=== PATIENT | female | born 1990 | race Caucasian/White ===

== ENCOUNTER 2019-08-22 07:11 | Outpatient (RCR) | payer BC, SELFPAY ==
[2019-07-31 16:41] LABS: Basophils Percent Auto 0.4 % (0.2-1.2); Eosinophils Absolute Auto 0.1 K/mm3 (0-0.3); Eosinophils Percent Auto 1.7 % (0-4.4); Hematocrit 39.3 % (37.0-47.0); Hemoglobin 13.5 g/dL (12.0-15.0); Immature Granulocyte Absolute 0.01 K/mm3 (0.00-0.031); Immature Granulocyte Percent A 0.1 % (0-0.5); Lymphocytes Absolute Auto 2.18 K/mm3 (0.9-3.2); Lymphocytes Percent Auto 30.7 % (18.3-44.2); Mean Corpuscular HGB Conc 34.4 g/dl (32-36); Mean Corpuscular Hemoglobin 31.3 pg (26-34); Mean Corpuscular Volume 91.2 fl (80-100); Mean Platelet Volume 9.5 fl (7.4-10.4); Monocytes Absolute Auto 0.6 K/mm3 (0.1-0.6); Monocytes Percent Auto 8.4 % (2.6-8.5); Neutrophils Absolute Auto 4.2 K/mm3 (1.3-6.7); Neutrophils Percent Auto 58.7 % (45.5-73.1); Platelet Count Result 261 k/mm3 (150-375); Red Blood Count 4.31 M/mm3 (4.2-5.4); Red Cell Distribution Width 12.1 % (11.5-14.5); White Blood Count 7.1 K/mm3 (4.5-10.0)
[2019-07-31 16:52] LABS: Alanine Aminotransferase 21 U/L (4-35); Albumin Level 4.4 g/dL (3.5-5.1); Alkaline Phosphatase 72 U/L (38-126); Aspartate Amino Transferase 29 U/L (14-36); Bilirubin,Total 0.6 mg/dL (0.2-1.3); Blood Urea Nitrogen 13 mg/dL (7-17); Calcium 9.4 mg/dL (8.4-10.2); Carbon Dioxide 24 mmol/L (22-30); Chloride 100 mmol/L (98-107); Estimated Glomerular Filt Rate > 60; Glucose 85 mg/dL (65-105); Sodium 135 mmol/L (137-145)
--- NOTE | 2019-07-31 18:20 | PC.NURSE ---
dr keenan returned page around 181 and stated to consult telecommunications repairer ob-dr mcleod. dr mcleod paged at [phone]. dr mcleod returned page. lab results reviewed w dr mcleod. orders received to administer mathotrexate at this time.
[2019-07-31 18:27] VITALS: BMI 26.2
--- NOTE | 2019-07-31 18:33 | PC.NURSE ---
Addendum entered by Nadya Norton RN 07/31/19 18:48: dr mcleod stated pt is to report back to ob unit on 08/03. pt states pt was informed follow up appointment would be for lab draw. Original Note: dr mcleod called to confirm pt labs. dr mcleod inquired about pt blood type. dr mcleod stated if this is pt first and pt is unsure of blood type, dr mcleod request for type and screen to be drawn and for pt to receive rhogam if blood type is negative.
[2019-07-31] MEDS: METHOTREXATE SODIUM/PF 50 MG/2 ML VIAL 36.25 MG IM ×2 (19:15)
[2019-08-15 18:03] LABS: Beta HCG Quantitative 156.89 mIU/ML
[2019-08-22 07:55] LABS: Beta HCG Quantitative 30.68 mIU/ML
== END 2019-08-27 07:52 | disposition home or self-care (01) ==
LOC: ANHOBOP 07:11
PROVIDERS: Visit Provider Obstetrics & Gynecology
DX: O02.1 Missed abortion (principal); Z3A.00 Weeks of gestation of pregnancy not specified
CPT/HCPCS: 36415; 80053; 84702; 85025; 86850; 86900; 86901; 96372; J9260

== ENCOUNTER 2019-09-05 07:10 | Outpatient (RCR) | payer BC, SELFPAY ==
[2019-09-05 07:56] LABS: Beta HCG Quantitative 4.03 mIU/ML
== END 2019-10-31 08:00 | disposition home or self-care (01) ==
LOC: ANHOBOP 07:10
PROVIDERS: Visit Provider Obstetrics & Gynecology
DX: Z32.00 Encounter for pregnancy test, result unknown (principal)
CPT/HCPCS: 36415; 84702

== ENCOUNTER 2020-01-08 17:37 | Outpatient (RCR) | payer BC, SELFPAY | END 2020-04-05 23:59 | disposition home or self-care (01) | LOC: ANHLAB 17:37 | PROVIDERS: Visit Provider Obstetrics & Gynecology | DX: O26.859 Spotting complicating pregnancy, unspecified trimester (principal); Z3A.00 Weeks of gestation of pregnancy not specified | CPT/HCPCS: 36415; 84702 ==

== ENCOUNTER 2020-01-23 10:46 | Outpatient (CLI) | payer BC, SELFPAY ==
--- NOTE | ~2020-01-23 | US_ITS ---
EXAMINATION: US OB <=14 wk fetus w TV DATE: 01/23/2020 12:00 INDICATION: History of miscarriage. Gestational dating. TECHNIQUE: Real-time transabdominal and transvaginal obstetric ultrasound. FINDINGS: No prior studies for comparison. The uterus measures 12.4 x 6.8 x 4.2 cm.. There is an intrauterine gestational sac, with pole i dentified. The crown rump length measures 0.53 cm, which correlates with a estimated gestational age of 6 weeks 2 days. heart tones are identified measuring 101 bpm. There is a small subchorion ic hemorrhage measuring 12 x 11 x 8 mm. Left ovary within normal limits measuring 3 x 1.4 x 1.5 cm. R ight ovary not visualized. IMPRESSION: 1. SL IUP with an EGA of 6 weeks, 2 days (EDC by current ultrasound of 09/15/2020). 2: Small subchorionic hemorrhage. Reviewed, dictated and finalized at location B. IMPRESSION: 1. SL IUP with an EGA of 6 weeks, 2 days (EDC by current ultrasound of 09/16/19 21). 2: Small subchorionic hemorrhage.
== END 2020-01-23 10:47 | disposition home or self-care (01) ==
PROVIDERS: Visit Provider Obstetrics & Gynecology
DX: O26.21 Pregnancy care for patient with recurrent pregnancy loss, first trimester (principal); O26.841 Uterine size-date discrepancy, first trimester; Z3A.01 Less than 8 weeks gestation of pregnancy
CPT/HCPCS: 76801; 76817

== ENCOUNTER 2020-02-21 07:59 | Outpatient (CLI) | payer BC, SELFPAY ==
--- NOTE | ~2020-02-21 | US_ITS ---
EXAMINATION: US OB <= 14 weeks fetus DATE: 02/21/2020 08:31 INDICATION: Follow-up subchorionic hematoma during first trimester of . TECHNIQUE: Real-time pelvic ultrasound utilizing both a transvaginal and transabdominal probe was pe rformed. The interpreting radiologist was not present for the study. COMPARISON: 01/23/2020 FINDINGS: The uterus measures 13.7 x 8.1 x 5.1 cm. There is an intrauterine gestational sac. A yolk sac and fe helen pole are identified. The crown rump length measures 4.3 cm, which is concordant within range of m easurement error of the estimated gestational age of 10 weeks and 3 days based upon the earlier ultra sound performed on 01/23/2020. heart motion is identified measuring 174 beats per minute (bpm) b y M-mode Doppler. Again seen is a small paracolic subchorionic hematoma along the caudal margin of th e gestational sac which measures 10 x 12 x 7 mm. Instantly noted is an 11 mm hypoechoic likely subser osal fibroid along the anterior uterine fundus. The bilateral ovaries are not visualized. There is no free fluid in the pelvis. IMPRESSION: 1. Single living fetus with heart rate of 174 bpm. 2. [place]-rump length of 4.3 cm which is concordant within range of measurement error of the previousl y determined estimated gestational age of 10 weeks 3 day(s) with ultrasound estimated date of deliver y ([facility]) of 09/15/2020. 3. Persistent small subchorionic hematoma. 4. 11 mm subserosal fibroid. Reviewed, dictated and finalized at location A. IMPRESSION: 1. Single living fetus with heart rate of 174 bpm. 2. [place]-rump length of 4.3 cm which is concordant within range of measurement error of the previously determined estimated gestational age of 10 weeks 3 day( s) with ultrasound estimated date of delivery ([facility]OR[facility]) of 09/15/2020. 3. Persistent small subchorionic hematoma. 4. 11 mm subserosal fibroid.
== END 2020-02-21 08:00 | disposition home or self-care (01) ==
PROVIDERS: Visit Provider Obstetrics & Gynecology
DX: O26.841 Uterine size-date discrepancy, first trimester (principal); Z3A.00 Weeks of gestation of pregnancy not specified
CPT/HCPCS: 76801

== ENCOUNTER 2020-03-02 17:38 | Outpatient (RCR) | payer BC, SELFPAY ==
[2020-03-02 18:09] LABS: Basophils Percent Auto 0.4 % (0.2-1.2); Eosinophils Absolute Auto 0.2 K/mm3 (0-0.3); Eosinophils Percent Auto 2.2 % (0-4.4); Hematocrit 36.7 % (37.0-47.0); Hemoglobin 13.2 g/dL (12.0-15.0); Immature Granulocyte Absolute 0.03 K/mm3 (0.00-0.031); Immature Granulocyte Percent A 0.4 % (0-0.5); Lymphocytes Absolute Auto 2.11 K/mm3 (0.9-3.2); Lymphocytes Percent Auto 27.1 % (18.3-44.2); Mean Corpuscular Hemoglobin 32.4 pg (26-34); Mean Corpuscular Volume 90.2 fl (80-100); Mean Platelet Volume 10.1 fl (7.4-10.4); Monocytes Absolute Auto 0.5 K/mm3 (0.1-0.6); Monocytes Percent Auto 6.8 % (2.6-8.5); Neutrophils Absolute Auto 4.9 K/mm3 (1.3-6.7); Neutrophils Percent Auto 63.1 % (45.5-73.1); Platelet Count Result 221 k/mm3 (150-375); Red Blood Count 4.07 M/mm3 (4.2-5.4); Red Cell Distribution Width 12.4 % (11.5-14.5); White Blood Count 7.8 K/mm3 (4.5-10.0)
[2020-03-02 18:30] LABS: Hemoglobin A1C 4.8 % (<5.7)
[2020-03-02 19:11] LABS: HIV 1/2 Ab P24 Ag Result Negative (Negative)
[2020-03-02 19:15] LABS: Vitamin D 25 Hydroxy 40.7 ng/mL
[2020-03-02 19:42] LABS: Hepatitis B Surface Antigen Negative (Negative)
[2020-03-03 08:13] LABS: Rapid Plasma Reagin Non-Reactive (NonReactive)
== END 2020-05-31 23:59 | disposition home or self-care (01) ==
LOC: ANHLAB 17:38
PROVIDERS: Visit Provider Obstetrics & Gynecology
DX: Z11.4 Encounter for screening for human immunodeficiency virus [HIV] (principal)
CPT/HCPCS: 36415; 82306; 83036; 85025; 85461; 86592; 86703; 86762; 87340; G0432

== ENCOUNTER 2020-03-19 08:10 | Outpatient (CLI) | payer BC, SELFPAY ==
--- NOTE | ~2020-03-19 | US_ITS ---
EXAMINATION: US OB <= 14 weeks fetus DATE: 03/19/2020 09:21 INDICATION: Subchorionic hemorrhage, second trimester TECHNIQUE: Real-time pelvic transabdominal and transvaginal ultrasound was performed. COMPARISON: 02/21/2020 FINDINGS: The previously described subchorionic hemorrhage is not identified. Two masses at the anter ior uterine body are identified which have the appearance of subserosal fibroids. heart motion is identified measuring 153 beats per minute (bpm) by M-mode Doppler. The following biometric data were obtained: Biparietal diameter (BPD): 2.8 cm; head circumference (HC): 11.0 cm; abdominal circumference (AC): 9. 0 cm; femur length (FL): 1.4 cm. These measurements are concordant. Estimated weight is 108 g +/- 16 g, which correlates with the 78th percentile when 09/15/2020 is used as estimated date of delivery. As single measurements, these parameters are each equal to the following estimated gestational ages w ith ranges of +/- 2 standard deviations: BPD: 15 weeks 1 days ( 14 weeks 0 days - 16 weeks 3 days). HC: 15 weeks 2 days ( 14 weeks 1 days - 16 weeks 3 days). AC: 15 weeks 2 days ( 13 weeks 4 days - 17 weeks 0 days). FL: 14 weeks 3 days ( 13 weeks 0 days - 15 weeks 5 days). estimated gestational age based solely on measurements from this exam is 15 weeks 0 days +/- 1 weeks 0 days. IMPRESSION: 1. Live intrauterine with an estimated gestational age of 15 weeks and 0 day(s) (+/-) 7 day (s) and an estimated delivery date of 09/10/2020. 2. No persistent subchorionic hemorrhage. Reviewed, dictated and finalized at location B. IMPRESSION: 1. Live intrauterine with an estimated gestational age of 15 weeks an d 0 day(s) (+/-) 7 day(s) and an estimated delivery date of 09/10/2020. 2. No persistent subchorionic hemorrhage.
== END 2020-03-19 08:11 | disposition home or self-care (01) ==
PROVIDERS: Visit Provider Obstetrics & Gynecology
DX: O46.92 Antepartum hemorrhage, unspecified, second trimester (principal); Z3A.15 15 weeks gestation of pregnancy
CPT/HCPCS: 76801

== ENCOUNTER 2020-06-27 12:25 | Observation (INO) | payer BC, SELFPAY ==
[2020-06-27] VITALS (21 sets, daily range): BP systolic 131–133; BP diastolic 87–89; PULSE 72–121; RESP 20; TEMP 37.2–37.3; O2SAT 83–100
--- NOTE | ~2020-06-27 | US_ITS ---
EXAMINATION: US OB limited EXAM DATE: 06/27/2020 14:39 INDICATION: fall - placenta check FALL 3rd trimester. TECHNIQUE: Pelvic obstetrical transabdominal sonogram was performed by a technologist. There are mu ltiple grayscale and Doppler images available for interpretation. Comparison is made to prior examina tion from 03/11/2020. FINDINGS: There is a single fetus identified in reach presentation with a heart rate of 139 beats per minute. The placenta is located in the posterior position. There is no sonographic evidence of retr oplacental hemorrhage identified. Placental margin to internal cervical os distance is 9.6 cm. Cervi arpan canal length of 7 cm. IMPRESSION: 1. Single fetus in breech presentation with heart rate 139 beats per minute. 2. Unremarkable posteriorly located placenta. Reviewed, dictated and finalized at location A. LETION MANAGER
[2020-06-27] MEDS: NIFEdipine 10 MG CAPSULE PO (13:36)
[2020-06-27 15:45] LABS: Add Urine Microscopic? YES; Appearance Urine Clear (Clear); Bacteria Urine Trace /hpf; Bilirubin Urine Negative (Negative); Blood Urine Negative (Negative); Color Urine Straw (Yellow); Glucose Urine UA 1+ mg/dL (Negative); Ketones Urine 2+ mg/dL (Negative); Leukocyte Esterase Ur Negative LEU/UL (Negative); Nitrate Urine Negative (Negative); Protein Urine Negative (Negative); RBC Urine 0-2 /hpf (0-2); Specific Grav Ur 1.014 (1.001-1.035); Squamous Epithelial Cell Urine Rare /hpf (Few); Urobilinogen Urine Negative mg/dL (<2.0); WBC Urine 0-3 /hpf
--- NOTE | 2020-06-27 18:42 | OBADM ---
This patient, Nadya Duron, admitted to the OB room OB Post 115 for observation. Patient/family oriented to hospital policies and general routines including ID bracelet, bed and alarms, visiting hours, pain management, procedures, bathroom and other care routines, personal items, smoking policy, room service/diet, call light, and visiting hours. Patient/Family are encouraged to report perceived risks to care and to ask questions if they do not understand what they are told or what they should do.
--- NOTE | 2020-07-08 13:03 | PM.OBTRLD ---
OB - Triage/Final Diagnosis Evaluation Laboratory results: Laboratory Tests 06/27/20 15:34 Urine Color Straw Urine Appearance Clear Urine pH 6.0 Ur Specific Story 1.014 Urine Protein Negative Urine Glucose (UA) 1+ H Urine Ketones 2+ H Ur Blood (Man) Negative Urine Nitrate Negative Urine Bilirubin Negative Urine Urobilinogen Negative Leukocyte Esterase Rfl Negative Urine RBC 0-2 Urine WBC 0-3 Ur Squamous Epith Cells Rare Urine Bacteria Trace Final Diagnosis (1) Fall: Code(s): W19.XXXA - Unspecified fall, initial encounter Status: Acute (2) contractions: Code(s): O47.9 - False labor, unspecified Status: Acute
== END 2020-06-27 17:11 | disposition home or self-care (01) ==
PROVIDERS: Admitting Provider Obstetrics & Gynecology; Visit Provider Obstetrics & Gynecology
DX: O47.9 False labor, unspecified (principal); W19.XXXA Unspecified fall, initial encounter; Z3A.00 Weeks of gestation of pregnancy not specified
CPT/HCPCS: 76815; 81001; A9270; G0378; G0379

== ENCOUNTER 2020-08-18 13:26 | Emergency (ER) | payer BC, SELFPAY ==
[2020-08-18] VITALS (7 sets, daily range): BP systolic 130–150; BP diastolic 80–105; PULSE 57–122; RESP 18–26; TEMP 37.1; O2SAT 96–100
--- NOTE | ~2020-08-18 | XR_ITS ---
EXAMINATION: XR chest 1V portable DATE: 08/18/2020 18:25 INDICATION: COVID positive during third trimester presenting with cough, congestion and fev er. TECHNIQUE: frontal view of the chest was obtained. COMPARISON: None FINDINGS: Scattered patchy airspace opacities throughout the right lung and in the left midlung zone. No pleura l effusion or pneumothorax. Borderline heart size accounting for AP technique which may represent phy siologic change of . Late shielding material projects over the abdomen. IMPRESSION: 1. Patchy bilateral airspace opacities consistent with COVID pneumonia. 2. Borderline heart size which may reflect physiologic changes of . Reviewed, dictated and finalized at location A. FER OPERATOR
--- NOTE | ~2020-08-18 | CT_ITS ---
EXAMINATION: CTA chest PE protocol DATE: 08/18/2020 21:44 INDICATION: COVID positive presenting with cough, congestion and fever. TECHNIQUE: Computed tomography (CT) pulmonary angiogram of the chest was performed with 100 mL Omnipa que-350 intravenous contrast. Additional 3D reconstructions utilizing coronal maximum intensity proje ction (MIP) were performed. Automated exposure control and iterative reconstruction technique were em ployed. The dose-length product was 158.12 mGy-cm. COMPARISON: None FINDINGS: Excellent contrast opacification of the pulmonary arteries. There is mild streak artifact from dense contrast in the superior vena cava and right atrium. Mild scattered respiratory motion artifact. Over all this only minimally decreases sensitivity in some of the smaller subsegmental pulmonary arteries. No pulmonary embolism. There are scattered bilateral patchy regions of consolidation ground[place] most prominent in the right lower lobe, lingula and right upper lobe most likely representing CO VID pneumonia. No pleural effusion, pneumothorax or smooth septal line thickening to suggest pulmonar y edema. Mild cardiomegaly which may reflect neurologic changes of . Small pericardial effus ion. Thoracic aorta is normal in caliber with no dissection. Small amount of residual thymic tissue i n the anterior mediastinum. No pathologically enlarged thoracic lymphadenopathy. Visualized upper abd omen is unremarkable. Mild thoracic spondylosis. IMPRESSION: 1. No pulmonary embolism. 2. Patchy bilateral lung disease greatest in the lingula, right upper and lower lobes most likely rep resenting pelvic pneumonia. 3. Mild cardiomegaly which per second physiologic changes of . 4. Small pericardial effusion. 2. Reviewed, dictated and finalized at location A. ECTIONAL SUPERVISOR LIEUTENANT IMPRESSION: 1. No pulmonary embolism. 2. Patchy bilateral lung disease greatest in the lingula, right upper and lower lobes most likely representing pelvic pneumonia. 3. Mild cardiomegaly which per second physiologic changes of . 4. Small pericardial effusion. 2.
[2020-08-18 13:55] LABS: Basophils Percent Auto 0.2 % (0.2-1.2); Hematocrit 36.6 % (37.0-47.0); Hemoglobin 12.3 g/dL (12.0-15.0); Immature Granulocyte Absolute 0.09 K/mm3 (0.00-0.031); Lymphocytes Absolute Auto 0.66 K/mm3 (0.9-3.2); Lymphocytes Percent Auto 14.6 % (18.3-44.2); Mean Corpuscular HGB Conc 33.6 g/dl (32-36); Mean Corpuscular Volume 89.3 fl (80-100); Mean Platelet Volume 9.8 fl (7.4-10.4); Monocytes Absolute Auto 0.4 K/mm3 (0.1-0.6); Monocytes Percent Auto 8.2 % (2.6-8.5); Neutrophils Absolute Auto 3.4 K/mm3 (1.3-6.7); Platelet Count Result 155 k/mm3 (150-375); Red Cell Distribution Width 12.7 % (11.5-14.5); White Blood Count 4.5 K/mm3 (4.5-10.0)
[2020-08-18 14:19] LABS: Alanine Aminotransferase 55 U/L (4-35); Albumin Level 3.3 g/dL (3.5-5.1); Alkaline Phosphatase 137 U/L (38-126); Anion Gap 6 mmol/L (8-16); Aspartate Amino Transferase 73 U/L (14-36); Bilirubin,Total 0.3 mg/dL (0.2-1.3); Blood Urea Nitrogen 12 mg/dL (7-17); Calcium 8.5 mg/dL (8.4-10.2); Carbon Dioxide 21 mmol/L (22-30); Chloride 108 mmol/L (98-107); Estimated Glomerular Filt Rate > 60; Glucose 79 mg/dL (65-105); Potassium 4.6 mmol/L (3.4-5.0); Sodium 135 mmol/L (137-145)
--- NOTE | 2020-08-18 18:04 | ECG_ITS ---
Measurements Intervals [place] Rate: 114 P: 55 TN: 128 QRS: 33 QRSD: 82 T: 35 QT: 293 QTc: 405 Interpretive Statements SINUS TACHYCARDIA POSSIBLE LEFT ATRIAL ENLARGEMENT BASELINE ARTIFACT- III ABNORMAL ECG Electronically Signed On 08-19-2020 7:01:06 STONECUTTER by Dilshad Baron D.O.
[2020-08-18 19:31] LABS: D Dimer 0.96 ug/mL (<0.48)
--- NOTE | 2020-08-18 20:02 | PC.NURSE ---
Called OB to come and monitor baby per Dr. Barillas request.
--- NOTE | 2020-08-18 21:18 | ED.GENADULT ---
HPI - General Adult General Chief complaint: Upper Respiratory Infection <Kaushik Hdz PA-C - Last Filed: 08/18/20 21:37> Stated complaint: COVID+, 36 weeks preg <Kaushik Hdz PA-C - Last Filed: 08/18/20 21:37> Time Seen by Provider: 08/18/20 17:40 <Kaushik Hdz PA-C - Last Filed: 08/18/20 21:37> Source: patient <Kaushik Hdz PA-C - Last Filed: 08/18/20 21:37> Mode of arrival: ambulatory <Kaushik Hdz PA-C - Last Filed: 08/18/20 21:37> Limitations: no limitations <Kaushik Hdz PA-C - Last Filed: 08/18/20 21:37> History of Present Illness HPI narrative: Patient presents with chief complaint of fatigue, shortness of breath after being diagnosed with Covid. Patient states that she began having symptoms approximately a week ago be tested positive for Covid on today. Patient started 6 weeks and her QUALITY FACILITATOR is Dr. Ridley. Patient states that her movement has been appropriate. Patient states that she is just concerned that having Covid will have negative effects on the baby. Patient is very anxious and tearful. She denies chest pain, vomiting, headache, inability to eat and drink, dysuria. <Kaushik Hdz PA-C - Last Filed: 08/18/20 21:37> Related Data Home medications: Home Medications Medication Instructions Recorded Confirmed PNV cmb#95-ferrous fumarate-FA 1 tablet PO DAILY 08/13/20 08/13/20 [] ergocalciferol (vitamin D2) 1,250 mcg PO WEEKLY 08/13/20 08/13/20 [Vitamin D2] <JUSTINO Parra Last Filed: 08/18/20 21:37> Allergies/adverse reactions: Allergies Allergy/AdvReac Type Severity Reaction Status Date / Time No Known Allergies Allergy Verified 07/31/19 19:01 <JUSTINO Parra Last Filed: 08/18/20 21:37> Review of Systems Review of Systems: Narrative: CONSTITUTIONAL: Reports body ache and fatigue denies fever, chills, or sweats. EYES: Denies visual changes, redness, or discharge. ENT: Denies rhinorrhea, congestion, sore throat, or otalgia. CARDIOVASCULAR: Denies chest pain, palpitations, or edema. RESPIRATORY: Reports shortness of breath with exertion denies cough GASTROINTESTINAL: Denies abdominal pain, nausea, vomiting, or diarrhea. GENITOURINARY: Denies dysuria or hematuria. SKIN: Denies rash or itching. MUSCULOSKELETAL: Denies back pain, joint pain, or myalgia. NEUROLOGIC: Denies headache, numbness, dizziness, or weakness. PSYCHIATRIC: Reports anxiety denies depression. <Kaushik Hdz PA-C - Last Filed: 08/18/20 21:37> PMFSH Past Medical History Medical History: Medical History (Updated 08/18/20 @ 22:23 by Victor Manuel Jackson MD) Fall contractions <Kaushik Hdz PA-C - Last Filed: 08/18/20 21:37> Family History Family History: Family History (Updated 08/13/20 @ 13:05 by Mook Johnson RN) Mother Breast cancer <Kaushik Hdz PA-C - Last Filed: 08/18/20 21:37> Social History Social History: Social History Substance use: never Gender identity (if verbalized by the patient): Female Spiritual care concerns: No <Kaushik Hdz PA-C - Last Filed: 08/18/20 21:37> Exam Narrative: Exam Narrative: GENERAL: Well-appearing, well-nourished.Obvious achondroplasia. HEAD: No traumatic injury noted. EYES: PERRLA and EOMI. ENT: Nares clear, no rhinorrhea or epistaxis. Mucous membranes moist. Oropharynx without tonsillar hypertrophy exudate or other lesions. Bilateral TMs pearly hendricks nonbulging NECK: Supple. No adenopathy or masses. No vertebral tenderness or loss of ROM. CHEST: Clear to auscultation. No respiratory distress. No agonal breathing or flail chest. No wheezes rales or rhonchi HEART: Regular rate and rhythm. Normal peripheral pulses. EXTREMITIES: No acute changes in ROM. No edema. SKIN: Warm, dry, no rash. NEURO: No focal deficits. Alert and oriented x3. PSYCH: Patient is very anxious and alternates between being calm to being tearfu
== END 2020-08-18 22:59 | disposition home or self-care (01) ==
PROVIDERS: Emergency Medicine; Physician Assistant; Emergency Provider Emergency Medicine
DX: O98.511 Other viral diseases complicating pregnancy, first trimester (principal); O99.511 Diseases of the respiratory system complicating pregnancy, first trimester; U07.1 COVID-19; J12.82 Pneumonia due to coronavirus disease 2019; Z3A.01 Less than 8 weeks gestation of pregnancy; R00.0 Tachycardia, unspecified; R94.31 Abnormal electrocardiogram [ECG] [EKG]
CPT/HCPCS: 36415; 71045; 71275; 80053; 85025; 85380; 93005; 96365; 99284; J0131; Q9967

== ENCOUNTER 2020-08-21 16:46 | Outpatient (CLI) | payer BC, SELFPAY ==
[2020-08-21] VITALS (20 sets, daily range): BP systolic 138–147; BP diastolic 91–99; PULSE 86–104; TEMP 37.2; O2SAT 93–97; BMI 29.0
[2020-08-21 17:27] LABS: Basophils Percent Auto 0.4 % (0.2-1.2); Hematocrit 35.2 % (37.0-47.0); Hemoglobin 11.9 g/dL (12.0-15.0); Immature Granulocyte Absolute 0.23 K/mm3 (0.00-0.031); Immature Granulocyte Percent A 3.1 % (0-0.5); Lymphocytes Absolute Auto 1.02 K/mm3 (0.9-3.2); Lymphocytes Percent Auto 13.5 % (18.3-44.2); Mean Corpuscular HGB Conc 33.8 g/dl (32-36); Mean Corpuscular Hemoglobin 30.1 pg (26-34); Mean Corpuscular Volume 89.1 fl (80-100); Mean Platelet Volume 9.6 fl (7.4-10.4); Monocytes Absolute Auto 0.5 K/mm3 (0.1-0.6); Monocytes Percent Auto 6.2 % (2.6-8.5); Neutrophils Absolute Auto 5.8 K/mm3 (1.3-6.7); Neutrophils Percent Auto 76.8 % (45.5-73.1); Platelet Count Result 193 k/mm3 (150-375); Red Blood Count 3.95 M/mm3 (4.2-5.4); Red Cell Distribution Width 12.9 % (11.5-14.5); White Blood Count 7.5 K/mm3 (4.5-10.0)
--- NOTE | 2020-08-21 17:30 | PC.NURSE ---
Patient tested positive for COVID on monday, was seen in the ER on 08/18/20. Several family members have been positive. Patient is short of breath with even mild excursion. Lung sounds are slightly diminished bilateral. O2 stat 95% or greater. Resp are 26.
[2020-08-21 17:32] LABS: Add Urine Microscopic? YES; Appearance Urine Cloudy (Clear); Bacteria Urine Trace /hpf; Bilirubin Urine Negative (Negative); Blood Urine Negative (Negative); Color Urine Yellow (Yellow); Glucose Urine UA Negative (Negative); Ketones Urine 2+ mg/dL (Negative); Leukocyte Esterase Ur Negative LEU/UL (NEGATIVE); Mucus Urine Moderate /lpf; Nitrate Urine Negative (Negative); Protein Urine 2+ mg/dL (Negative); RBC Urine 0-2 /hpf (0-2); Specific Grav Ur 1.027 (1.001-1.035); Squamous Epithelial Cell Urine Many /hpf (Few); WBC Urine 0-3 /hpf (0-3)
[2020-08-21 17:35] LABS: Creatinine Urine 156.8 mg/dL; Total Protein Urine Random 43 mg/dL; Ur Ttl Prot Creatinine Ratio 0.27 mg/mg (0-0.20)
[2020-08-21 17:42] LABS: Alanine Aminotransferase 49 U/L (4-35); Albumin Level 3.4 g/dL (3.5-5.1); Alkaline Phosphatase 177 U/L (38-126); Anion Gap 7 mmol/L (8-16); Aspartate Amino Transferase 58 U/L (14-36); Bilirubin,Total 0.6 mg/dL (0.2-1.3); Blood Urea Nitrogen 12 mg/dL (7-17); Calcium 8.7 mg/dL (8.4-10.2); Carbon Dioxide 21 mmol/L (22-30); Chloride 110 mmol/L (98-107); Estimated Glomerular Filt Rate > 60; Glucose 71 mg/dL (65-105); Sodium 138 mmol/L (137-145)
--- NOTE | 2020-08-21 18:13 | PC.NURSE ---
Dr Hayes notified of lab results, ok to de home with a 24 hour urine collection. Encourage patient to rest and stay hydrated.
== END 2020-08-21 18:30 | disposition home or self-care (01) ==
LOC: ANHOBOP 16:57 → ANHOBPP 17:08
PROVIDERS: Visit Provider Obstetrics & Gynecology
DX: O13.9 Gestational [pregnancy-induced] hypertension without significant proteinuria, unspecified trimester (principal); Z3A.00 Weeks of gestation of pregnancy not specified
CPT/HCPCS: 36415; 80053; 81001; 82570; 84156; 84550; 85025; 87086; 87088; 99199

== ENCOUNTER 2020-08-22 20:59 | Outpatient (NON) | payer BC, SELFPAY ==
[2020-08-22 21:12] VITALS: BMI 29.0
[2020-08-22 21:31] LABS: Collection Time Urine 24 HOURS
[2020-08-22 21:32] LABS: Total Volume 24 Hour Urine 500 ml
[2020-08-22 21:33] LABS: Patient Weight 134 Lbs
[2020-08-22 21:54] LABS: Creatinine Clearance Urine 124.8 ml/min (75-125); Creatinine Urine 188.5 mg/dL; Total Protein Urine 24 Hr 190 MG/DAY (28-141); Total Protein Urine Random 38 mg/dL
== END 2020-08-22 21:00 ==
LOC: ANHOBOP 21:03
PROVIDERS: Visit Provider Obstetrics & Gynecology Gynecology
DX: O13.9 Gestational [pregnancy-induced] hypertension without significant proteinuria, unspecified trimester (principal); Z3A.00 Weeks of gestation of pregnancy not specified
CPT/HCPCS: 81050; 82575; 84156

== ENCOUNTER 2020-08-27 09:02 | Observation (INO) | payer BC, SELFPAY ==
[2020-08-27] VITALS (41 sets, daily range): BP systolic 111–142; BP diastolic 87–105; PULSE 73–133; TEMP 36.9–37.6; O2SAT 95–98
--- NOTE | ~2020-08-27 | XR_ITS ---
XR chest 2V DATE: 08/28/2020 08:31 INDICATION: Covid Pneumonia TECHNIQUE: PA and lateral views with gonadal shielding COMPARISON: August 18, 2020 CT pulmonary scan 09/15/2020 portable AP chest FINDINGS: There are patchy infiltrates throughout the right lung and at the mid to upper left lung, i mproved since 08/28/2020. No pleural effusion or pulmonary vascular congestion or pneumothorax. Normal heart size. Osteochondroma proximal left humeral shaft. IMPRESSION: Bilateral pulmonary infiltrates, right greater than left, improved bilaterally since ua2020 Reviewed, dictated and finalized at location B. WEBSPHERE DEVELOPER IMPRESSION: Bilateral pulmonary infiltrates, right greater than left, improved bilaterally since August 18, 2020
[2020-08-27] MEDS: NIFEdipine 10 MG CAPSULE PO ×2 (10:18→10:53)
[2020-08-27 10:26] LABS: Basophils Percent Auto 0.3 % (0.2-1.2); Eosinophils Percent Auto 0.5 % (0-4.4); Hematocrit 32.6 % (37.0-47.0); Hemoglobin 11.3 g/dL (12.0-15.0); Immature Granulocyte Absolute 0.11 K/mm3 (0.00-0.031); Immature Granulocyte Percent A 1.5 % (0-0.5); Lymphocytes Absolute Auto 1.11 K/mm3 (0.9-3.2); Lymphocytes Percent Auto 14.7 % (18.3-44.2); Mean Corpuscular HGB Conc 34.7 g/dl (32-36); Mean Corpuscular Hemoglobin 30.6 pg (26-34); Mean Corpuscular Volume 88.3 fl (80-100); Mean Platelet Volume 9.6 fl (7.4-10.4); Monocytes Absolute Auto 0.5 K/mm3 (0.1-0.6); Neutrophils Absolute Auto 5.7 K/mm3 (1.3-6.7); Platelet Count Result 358 k/mm3 (150-375); Red Blood Count 3.69 M/mm3 (4.2-5.4); Red Cell Distribution Width 12.8 % (11.5-14.5); White Blood Count 7.5 K/mm3 (4.5-10.0)
[2020-08-27 10:39] LABS: Alanine Aminotransferase 28 U/L (4-35); Albumin Level 3.2 g/dL (3.5-5.1); Alkaline Phosphatase 150 U/L (38-126); Anion Gap 5 mmol/L (8-16); Aspartate Amino Transferase 27 U/L (14-36); Bilirubin,Total 0.3 mg/dL (0.2-1.3); Blood Urea Nitrogen 14 mg/dL (7-17); Carbon Dioxide 22 mmol/L (22-30); Chloride 109 mmol/L (98-107); Estimated Glomerular Filt Rate > 60; Glucose 74 mg/dL (65-105); Potassium 3.9 mmol/L (3.4-5.0); Sodium 136 mmol/L (137-145); Uric Acid 4.2 mg/dL (2.5-7.5)
[2020-08-27 10:59] LABS: Add Urine Microscopic? YES; Appearance Urine Clear (Clear); Bacteria Urine Trace /hpf; Bilirubin Urine Negative (Negative); Blood Urine Negative (Negative); Color Urine Straw (Yellow); Glucose Urine UA Negative (Negative); Ketones Urine Negative (Negative); Leukocyte Esterase Ur Trace LEU/UL (Negative); Mucus Urine Rare /lpf; Nitrate Urine Negative (Negative); Protein Urine Negative (Negative); RBC Urine 0-2 /hpf (0-2); Squamous Epithelial Cell Urine Few /hpf (Few); Urobilinogen Urine Negative mg/dL (<2.0); WBC Urine 0-3 /hpf
[2020-08-27] MEDS: ACETAMINOPHEN 500 MG TABLET 1000 MG PO (12:17)
[2020-08-27] MEDS: NIFEdipine 30 MG TAB.ER.24 PO (12:29)
[2020-08-27] MEDS: hydrOXYzine HCL 12.5 MG TABLET PO (19:06)
[2020-08-27] MEDS: SALINE LOCK FLUSH 2 ML IV PUSH (22:00)
[2020-08-28] VITALS (7 sets, daily range): BP systolic 123–135; BP diastolic 81–96; PULSE 77–105; TEMP 36.9
--- NOTE | 2020-08-28 10:07 | PC.NURSE ---
1000- Spoke with Dr. Ridley, reviewed chest x ray. Per Dr. Ridley, will keep original scheduled c section for 09/03, will send patient home after 24 hour urine is completed. Patient will go home on 30 Procardia XL.
--- NOTE | 2020-08-28 11:58 | WPDOBADMIT ---
Obstetrics - Admit Note Admission Note: record reviewed. No pertinent additions to the history and/or any subsequent changes in the physical findings that are not consistent with the expected course of the were found. 30 y/o A1 @ 38 weeks with complicated by IUGR and a recent diagnosis of COVID with pneumonia diagnosis, hypochrondroplasia (normal fetus). Patient seen by [facility] for NST and ultrasound and showed elevated bps. Patient sent for evaluation. OBHX : sab x1 MEDHX: hypochrondroplasia SURGHX: ortho surgeries SOCHX: denies JAYNA ROS: denies SOB or cough VS: 128/86 (120-140/80-100) abdomen: soft Nontender, gravid nst: reactive CXR - bilateral infiltrates improved since 08/18/20 a/p IUGR with PIH- 24 hour urine pending, continue with procardia 30 xl plan discharge home with bedrest. nst/CELY/ultrsound next week and plan scheduled section @ 39 weeks. Recent pneumonia with COVID-continue to monitor improving. FWB - reassuring Additions to the history and/or subsequent changes in the physical findings follow. None.
[2020-08-28] MEDS: NIFEdipine 30 MG TAB.ER.24 PO (12:10)
[2020-08-28 15:49] LABS: Collection Time Urine 24 HOURS
[2020-08-28 15:50] LABS: Total Volume 24 Hour Urine 1000 ml
[2020-08-28 16:07] LABS: Creatinine Clearance Urine 147.9 ml/min (75-125); Creatinine Urine 113.1 mg/dL; Patient Weight 138 Lbs; Total Protein Urine 24 Hr 170 MG/DAY (28-141); Total Protein Urine Random 17 mg/dL
== END 2020-08-28 14:28 | disposition home or self-care (01) ==
PROVIDERS: Admitting Provider Obstetrics & Gynecology; Visit Provider Obstetrics & Gynecology
DX: O36.5930 Maternal care for other known or suspected poor fetal growth, third trimester, not applicable or unspecified (principal); O98.513 Other viral diseases complicating pregnancy, third trimester; O99.513 Diseases of the respiratory system complicating pregnancy, third trimester; U07.1 COVID-19; J12.82 Pneumonia due to coronavirus disease 2019; Q77.4 Achondroplasia; Z3A.38 38 weeks gestation of pregnancy
CPT/HCPCS: 36415; 71046; 80053; 81001; 81050; 82575; 84156; 84550; 85025; A9270; G0378; G0379

== ENCOUNTER 2020-08-31 10:57 | Outpatient (RCR) | payer BC, SELFPAY ==
[2020-08-31 11:25] VITALS: BP 137/92; PULSE 81
== END 2020-09-04 08:11 | disposition home or self-care (01) ==
LOC: ANHOBOP 10:57
PROVIDERS: Visit Provider Obstetrics & Gynecology
DX: O16.3 Unspecified maternal hypertension, third trimester (principal); Z3A.38 38 weeks gestation of pregnancy
CPT/HCPCS: 59025

== ENCOUNTER 2020-09-02 11:06 | Outpatient (CLI) | payer BC, SELFPAY ==
[2020-09-02 11:41] LABS: Hematocrit 33.8 % (37.0-47.0); Hemoglobin 11.3 g/dL (12.0-15.0); Mean Corpuscular HGB Conc 33.4 g/dl (32-36); Mean Corpuscular Hemoglobin 29.5 pg (26-34); Mean Corpuscular Volume 88.3 fl (80-100); Mean Platelet Volume 9.9 fl (7.4-10.4); Platelet Count Result 308 k/mm3 (150-375); Red Blood Count 3.83 M/mm3 (4.2-5.4); Red Cell Distribution Width 13.5 % (11.5-14.5); White Blood Count 7.2 K/mm3 (4.5-10.0)
[2020-09-02 13:09] LABS: Rapid Plasma Reagin Non-Reactive (NonReactive)
== END 2020-09-02 11:07 | disposition home or self-care (01) ==
LOC: ANHLAB 11:07
PROVIDERS: Visit Provider Obstetrics & Gynecology
DX: Z34.93 Encounter for supervision of normal pregnancy, unspecified, third trimester (principal); Z3A.00 Weeks of gestation of pregnancy not specified
CPT/HCPCS: 36415; 85027; 86592; 86850; 86900; 86901

== ENCOUNTER 2020-09-03 05:23 | Inpatient (IN) | payer BC, SELFPAY ==
[2020-09-03] VITALS (51 sets, daily range): BP systolic 124–159; BP diastolic 86–104; PULSE 57–91; RESP 14–20; TEMP 36.2–37.1; O2SAT 96–100; BMI 28.6
--- NOTE | 2020-09-03 06:29 | LDADM ---
This patient, Nadya Duron, was admitted to Labor/Delivery/Recovery 120 on 09/03/20 at 05:23. Plans for labor, pain management and were discussed with patient. Patient/family oriented to hospital policies and general routines including ID bracelet, bed and alarms, visiting hours, pain management, procedures, bathroom and other care routines, personal items, smoking policy, room service/diet and guest tray routines, infant security routines, and visiting hours. Patient/Family are encouraged to report perceived risks to care and to ask questions if they do not understand what they are told or what they should do. See OBIX for further documentation.
--- NOTE | 2020-09-03 06:44 | WPDANESEPPF ---
Anes - Initial Pre Proc Eval Procedure: Operation Date: 09/03/20 07:30 Proposed Procedures p Primary Section - Apolinar Ridley MD Date/Time: 09/03/20 06:44 Surgeon: Apolinar Ridley MD Pre Op Diagnosis: Section Patient Data Age: 30 Gender: F Height: 4 ft 9 in Weight: 60 kg Allergies Allergy/AdvReac Type Severity Reaction Status Date / Time No Known Allergies Allergy Verified 07/31/19 19:01 Home Medications Medication Instructions Recorded Confirmed Type PNV cmb#95-ferrous fumarate-FA 1 tablet PO DAILY 08/13/20 08/28/20 History [] ergocalciferol (vitamin D2) 1,250 mcg PO WEEKLY 08/13/20 08/28/20 History [Vitamin D2] nifedipine [Procardia XL] 30 mg PO DAILY #7 tablet 08/28/20 Rx Patient hx anesthesia problems: none Family hx anesthesia problems: none PMFSH Past Medical History Medical History Fall contractions Family History Family History Mother Breast cancer Social History Social History Smoking status: Never smoker Substance use: never Gender identity (if verbalized by the patient): Female Spiritual care concerns: No Anes - Eval Final PreProcedure Day of Procedure 09/03/20 06:44 Patient weight: overweight Heart: regular rate and rhythm Lungs: clear to auscultation Airway: Mallampati scale class II Neurological: alert and oriented ASA classification: III Emergent: no Anesthetic plan: proceed Anesthesia type and monitoring: regional (special considerations 12mg bupiv 0.15 morphine) spinal and standard monitoring Informed Consent: The patient's anesthetic plan and its attendant risks and benefits were discussed with the patient/family/POA. Questions were solicited and answers provided to the satisfaction of the patient/family/POA.
[2020-09-03] MEDS: LACTATED RINGERS 1,000 ML 125 ML IV CONT (07:03)
--- NOTE | 2020-09-03 07:14 | PM.IMHP ---
H&P: HPI History of Present Illness Date/Time: 09/03/20 07:14 Chief Complaint: Csection Narrative: Nadya Duron is a 30 year old female A1 @ 39 weeks by first trimester ultrasound for an EDC of 09/10/20.pregancy complicated by mom with achondroplasia, fibroids, IUGR, and COVID Pneumonia. Patient scheduled for a primary csections due to maternal constricted pelvis. Patient reports movement, denies contractions and leakage fluid. Review of Systems Review of Systems: All systems reviewed & are unremarkable except as noted in HPI and below PMFSH Past Medical History Medical History Fall contractions Family History Family History Mother Breast cancer Social History Social History Smoking status: Never smoker Substance use: never Gender identity (if verbalized by the patient): Female Spiritual care concerns: No Meds Home Medications and Allergies Home Medications Medication Instructions Recorded Confirmed Type PNV cmb#95-ferrous fumarate-FA 1 tablet PO DAILY 08/13/20 08/28/20 History [] ergocalciferol (vitamin D2) 1,250 mcg PO WEEKLY 08/13/20 08/28/20 History [Vitamin D2] nifedipine [Procardia XL] 30 mg PO DAILY #7 tablet 08/28/20 Rx Allergies Allergy/AdvReac Type Severity Reaction Status Date / Time No Known Allergies Allergy Verified 07/31/19 19:01 Exam Resp: Effort & Inspection: normal respiratory effort Cardio: Rate: regular rate GI: Other: uterus gravid movement noted. Assessment and Plan Assessment and plan (1) Pneumonia due to 2019 novel coronavirus: Code(s): U07.1 - COVID-19; J12.82 - Pneumonia due to coronavirus disease 2019 Status: Acute (2) Contracted pelvis in : Code(s): O33.1 - Maternal care for disproportion due to generally contracted pelvis Status: Acute Assessment and Plan: plan for repeat csection. Risk and benefits reviewed with patient in detail.
--- NOTE | 2020-09-03 07:29 | WPDHPUPDATE1 ---
History and Physical Update Update Date/Time: 09/03/20 07:29 History and Physical has been reviewed, including an updated exam of the patient. There are NO changes in the patient's condition. Risks, benefits, and alternatives have been discussed and questions answered. Patient agrees to proceed with procedure.
[2020-09-03] MEDS: ceFAZolin 2 GM/D5W 50 ML 2 GM/50 ML BAG IVPB (07:42)
[2020-09-03] MEDS: KETOROLAC 15 MG/ML VIAL (*BKC) IV PUSH (08:29)
[2020-09-03] MEDS: MORPHINE SULFATE (*CRX) 2 MG/ML INJ 3 MG IV PUSH ×2 (09:03→09:18)
[2020-09-03] MEDS: diphenhydrAMINE HCl INJ 50 MG/ML VIAL 12.5 MG IV PUSH (09:33)
--- NOTE | 2020-09-03 11:53 | OBPPTRN ---
Patient transferred to post room # 284 via bed. Support person present. Oriented to unit, room, information board, rooming in, admission packet and security measures. Patient verbalizes understanding.
--- NOTE | 2020-09-03 13:01 | PC.NURSE ---
Consulted with patient, reviewed feeding cues, frequencies, duration of feedings, feeding elimination flow sheet, and signs of adequate intake. Demonstrated stimulation techniques to wake for feeding. Assisted with to breast. Reviewed positioning/alignment, holding breast and asymmetrical latch on. was able to latch correctly. Infant nursed eagerly, with steady draws and frequent swallowing noted. Reviewed signs of a correct latch, effective nursing and suck swallow ratio. was able to maintain latch without discomfort to mother. Nipple care reviewed. Instructed mother to call out for RN assistance if she is unable to latch for feeding or she has discomfort with nursing. Instructed feeding should be initiated three hours from start of last feeding or if feeding cues are noted before. Mother voiced understanding of information shared.
[2020-09-03] MEDS: NIFEdipine 30 MG TAB.ER.24 PO (15:44)
[2020-09-03] MEDS: HYDROcodone/acetaminophen (*CRX) 5-325 MG TABLET 1 TAB PO ×2 (15:44→23:12)
[2020-09-03] MEDS: IBUPROFEN 600 MG TABLET PO ×2 (15:45→23:12)
--- NOTE | 2020-09-03 15:50 | PM.OBPRVD ---
OB - Delivery Note Procedure Delivery date: 09/03/20 Procedure: Procedures Operation Date: 09/03/20 07:30 Actual Procedures Side Surgeon p Primary Section Apolinar Ridley MD events: Induced HTN Intrapartal events: None Induction method: none Delivery monitor: external FHT and external uterine Route of delivery: Specimen: Yes Quantitative Blood Loss (ml): 380 Anesthesia type: Spinal Disposition: PACU Complications: none [place] Baby Date of : 09/03/20 Time of : 08:08 Weeks of gestation at delivery: 39 Infant gender: Male Weight (pounds): 5 Weight (ounces): 12 presentation: vertex position: Left Occiput Anterior cord vessel description: 3 Vessels score one minute: 9 score five minutes: 9
--- NOTE | 2020-09-03 15:53 | PM.PROC ---
Procedure Note - Detailed Date of procedure: 09/03/20 Pre-op diagnosis: Section Post-op diagnosis: same Procedure performed: primary csection Anesthesia: spinal Surgeon: Apolinar Ridley MD Estimated blood loss (mL): 380 Urine output (mL): 200 Drains: Yes Packing: No Pathology: yes Complications: None Condition: stable Disposition: PACU Findings: male infant vertex
[2020-09-03] MEDS: DEXTROSE 5%/0.45% SOD CHL 1,000 ML 125 ML IV CONT (16:34)
[2020-09-03] MEDS: DOCUSATE SODIUM 100 MG CAPSULE PO (16:34)
[2020-09-04] VITALS: BP 137/91; PULSE 87; RESP 16; TEMP 36.8; O2SAT 97
[2020-09-04 04:00] VITALS: BP 126/87; PULSE 89; RESP 18; TEMP 36.9; O2SAT 98
[2020-09-04 04:56] LABS: Basophils Percent Auto 0.3 % (0.2-1.2); Eosinophils Percent Auto 0.1 % (0-4.4); Hematocrit 31.9 % (37.0-47.0); Hemoglobin 10.7 g/dL (12.0-15.0); Immature Granulocyte Absolute 0.03 K/mm3 (0.00-0.031); Immature Granulocyte Percent A 0.3 % (0-0.5); Lymphocytes Absolute Auto 1.32 K/mm3 (0.9-3.2); Lymphocytes Percent Auto 11.6 % (18.3-44.2); Mean Corpuscular HGB Conc 33.5 g/dl (32-36); Mean Corpuscular Volume 89.4 fl (80-100); Mean Platelet Volume 10.3 fl (7.4-10.4); Monocytes Absolute Auto 0.9 K/mm3 (0.1-0.6); Monocytes Percent Auto 8.1 % (2.6-8.5); Neutrophils Absolute Auto 9.1 K/mm3 (1.3-6.7); Neutrophils Percent Auto 79.6 % (45.5-73.1); Platelet Count Result 243 k/mm3 (150-375); Red Blood Count 3.57 M/mm3 (4.2-5.4); Red Cell Distribution Width 13.8 % (11.5-14.5); White Blood Count 11.4 K/mm3 (4.5-10.0)
[2020-09-04] MEDS: HYDROcodone/acetaminophen (*CRX) 5-325 MG TABLET 1 TAB PO ×4 (06:30→21:10)
[2020-09-04] MEDS: IBUPROFEN 600 MG TABLET PO ×3 (06:30→21:16)
[2020-09-04 07:45] VITALS: PULSE 95; RESP 18; O2SAT 98
--- NOTE | 2020-09-04 07:45 | PC.NURSE ---
Pt introductions made and plan of care discussed per post op c section, pain management, breast feeding, daily care activities. PT verbalized understanding of such care.
[2020-09-04 08:10] VITALS: BP 136/84; PULSE 95; RESP 18; TEMP 37.4; O2SAT 98
--- NOTE | 2020-09-04 10:09 | PC.NURSE ---
Consulted with patient, reviewed feeding frequencies, duration of feedings, and signs of adequate intake. Demonstrated stimulation techniques to wake infant for feeding. Assisted with infant to breast. Reviewed positioning/alignment, holding breast and asymmetrical latch on. Infant was able to latch correctly. nursed eagerly, with steady draws and frequent swallowing noted. Reviewed signs of a correct latch, effective nursing and suck swallow ratio. was able to maintain latch without discomfort to mother. Nipple care reviewed. Instructed mother to call out for RN assistance if she is unable to latch infant for feeding or she has discomfort with nursing. Instructed feeding should be initiated three hours from start of last feeding or if feeding cues are noted before. Mother voiced understanding of information shared.
[2020-09-04] MEDS: SIMETHICONE 80 MG TAB.CHEW PO ×4 (10:52→21:12)
[2020-09-04] MEDS: DOCUSATE SODIUM 100 MG CAPSULE PO ×2 (10:52→17:37)
[2020-09-04] MEDS: MULTIVIT/MIN/PREN/FOL AC/IRON TABLET 1 TAB PO (10:52)
--- NOTE | 2020-09-04 10:52 | WPDANLDPN2 ---
Anes-Prog Note L&D Date/Time: 09/04/20 10:52 Comfortable throughout: section Neuraxial method: spinal Epidural/Spinal procedure site: clean & non-tender Neuro status: Neuro function grossly intact. Respiratory status: normal Airway patency: baseline Mental status: baseline Post-Op hydration status: normal Vital Signs: Last Vital Signs Temp 99.4 F 09/04/20 08:10 Pulse 95 09/04/20 08:10 Resp 18 09/04/20 08:10 BP 136/84 09/04/20 08:10 Pulse Ox 98 09/04/20 08:10 Pain score (VAS): no pain verbalized I/O: Intake & Output 09/03/20 09/04/20 09/04/20 23:59 07:59 15:59 Intake Total 700 900 Output Total 550 3050 Balance 150 -2150 Post-procedural complaints: none Patient feedback: Patient satisfied with anesthetic care.
--- NOTE | 2020-09-04 10:52 | WPDANLDNPN2 ---
Anes-Prog Note L&D-Neuraxial Date/Time: 09/04/20 10:52 Neuraxial medications: intrathecal PF morphine Opiod-related complaints: pruritis severe, treatment refractory Patient feedback: Patient satisfied with post-operative pain management.
[2020-09-04] MEDS: NIFEdipine 30 MG TAB.ER.24 PO (10:54)
[2020-09-04] MEDS: HYDROcodone/acetaminophen (*CRX) 10-325 MG TABLET 1 TAB PO (14:26)
--- NOTE | 2020-09-04 14:43 | P.PNOB_ITS ---
OB - PN: Subj Subjective Date/time seen: 09/04/20 14:43 doison jean baptiste having some cramping relieved with pain medications OB - PN: Obj Data Labs CBC & Chem 7: 09/04/20 03:59 Labs: Laboratory Results - last 24 hr 09/04/20 03:59 WBC 11.4 H RBC 3.57 L Hgb 10.7 L Hct 31.9 L MCV 89.4 MCH 30.0 MCHC 33.5 RDW 13.8 Plt Count 243 MPV 10.3 Immature Gran % (Auto) 0.3 Neut % (Auto) 79.6 H Lymph % (Auto) 11.6 L [place] % (Auto) 8.1 Eos % (Auto) 0.1 Baso % (Auto) 0.3 Lymph # (Auto) 1.32 [place] # (Auto) 0.9 H Eos # (Auto) 0.0 Baso # (Auto) 0.0 Abs Immat Gran (auto) 0.03 Absolute Neuts (auto) 9.1 H Absolute Nucleated RBC 0.0 Nucleated RBC % 0.0 OB - PN A/P Assessment and Plan (1) S/P : Code(s): Z98.891 - History of uterine scar from previous surgery Status: Acute Assessment and Plan: continue with pp care (2) PIH ( induced hypertension): Code(s): O13.9 - Gestational [-induced] hypertension without significant proteinuria, unspecified trimester Status: Acute Assessment and Plan: stable with procardia 30 xl . Time Spent With Patient Time: Total time spent is greater than 50% in coordination of care (as documented) at patient's floor/unit and/or counseling patient: Exam Narrative: Exam Narrative: inc: c/d/i ff at umbilicus
[2020-09-04 20:00] VITALS: BP 139/95; PULSE 102; RESP 18; TEMP 37.2; O2SAT 97
[2020-09-05] VITALS (7 sets, daily range): BP systolic 119–142; BP diastolic 83–93; PULSE 96–146; RESP 18; TEMP 36.7–37.1; O2SAT 97–98
[2020-09-05] MEDS: HYDROcodone/acetaminophen (*CRX) 5-325 MG TABLET 1 TAB PO ×3 (04:58→16:57)
[2020-09-05] MEDS: SIMETHICONE 80 MG TAB.CHEW PO ×2 (04:59→11:13)
[2020-09-05] MEDS: IBUPROFEN 600 MG TABLET PO ×3 (04:59→16:57)
--- NOTE | 2020-09-05 10:15 | PM.OBPNVD ---
OB - PN: Subj Subjective Date/time seen: 09/05/20 10:15 Patient comments: no complaints and pain well controlled baby status: doing well and nursing well OB - PN: Obj Data Labs CBC & Chem 7: 09/04/20 03:59 OB - PN A/P Plan Plan: routine care Time Spent With Patient Time: Total time spent is greater than 50% in coordination of care (as documented) at patient's floor/unit and/or counseling patient: Exam Narrative: Exam Narrative: inc c/d/i : Bimanual exam- vagina & uterus: other (Uterus firm, nt @U)
[2020-09-05] MEDS: DOCUSATE SODIUM 100 MG CAPSULE PO ×2 (11:12→16:57)
[2020-09-05] MEDS: NIFEdipine 30 MG TAB.ER.24 PO (11:12)
[2020-09-05] MEDS: MULTIVIT/MIN/PREN/FOL AC/IRON TABLET 1 TAB PO (11:12)
--- NOTE | 2020-09-05 11:25 | PC.NURSE ---
Procardia given late today due to delay in Pharmacy getting to floor.
--- NOTE | 2020-09-05 14:36 | PC.NURSE ---
1400-patient and spouse took baby to 1st floor OB for family viewing with RN. Patient tolerated well.
--- NOTE | 2020-09-05 14:38 | PC.NURSE ---
1420-patient and spouse returned with baby from 1st floor viewing.
--- NOTE | 2020-09-05 18:16 | PC.NURSE ---
1800 Breast feeding note; Mother verbalized concern I just don't know how much baby is getting and reported that baby is sleepy at the breast. Nurse suggested that mother could start some pumping this evening to enhance her milk production. Pt agreed and asked for help setting up her Spectra pump. This was done. 24mm flanges used. Nurse suggested mother pump 2 times this evening, continue breast and bottle feeding through the night, and could resume some pumping tomorrow. Nurse observed infant at breast at 1640; he latched with apparent deep latch after just a few attempts, maintainted latch and demonstrated rhythmic sucking, and vigorous. Parents were giving appropriate stimulation to keep baby nursing vigorously. Baby nursed both sides, and nurse feels he was nursing effectively. Reviewed q2-3h and on demand feedings, waking if necessary. Reviewed positioning, alignment, use of c-hold and nose to nipple latch on technique. Parents attentive and voiced understanding of all information shared.
--- NOTE | 2020-09-05 20:13 | PC.NURSE ---
09/05/20 at 2100 Patient viewed the discharge video Mother & Baby Care, The First Two Weeks . Patient was given the opportunity and encouraged to ask questions. Patient verbalized understanding of information shared and has been given the mother/baby guide for home reference.
--- NOTE | 2020-09-05 21:01 | ECG_ITS ---
Measurements Intervals [place] Rate: 99 P: 50 SD: 134 QRS: 21 QRSD: 82 T: 21 QT: 317 QTc: 407 Interpretive Statements SINUS RHYTHM WITH SINUS ARRHYTHMIA POSSIBLE LEFT ATRIAL ENLARGEMENT DELAYED PRECORDIAL R/S TRANSITION BASELINE ARTIFACT- I, II, III Electronically Signed On 09-06-2020 7:56:12 [employer]OUN[employer] by Dilshad Baron D.O.
[2020-09-05 21:20] LABS: Hematocrit 29.4 % (37.0-47.0); Hemoglobin 9.7 g/dL (12.0-15.0); Mean Corpuscular Hemoglobin 29.6 pg (26-34); Mean Corpuscular Volume 89.6 fl (80-100); Mean Platelet Volume 9.6 fl (7.4-10.4); Platelet Count Result 243 k/mm3 (150-375); Red Blood Count 3.28 M/mm3 (4.2-5.4); Red Cell Distribution Width 14.1 % (11.5-14.5); White Blood Count 10.2 K/mm3 (4.5-10.0)
--- NOTE | 2020-09-05 22:11 | PC.NURSE ---
09/05/2020 at 2009 Before beginning to draw the stat CBC that was ordered by Dr. Hayes I noticed the right siderail of the bed was not in the upright position. I asked if I could raise it. No I want that down. I explained I am concerned that the rail should be raised for Nadya's safety and Nadya replied, No, you don't have to I'll be okay.
[2020-09-06] MEDS: HYDROcodone/acetaminophen (*CRX) 5-325 MG TABLET 1 TAB PO ×2 (00:02→08:24)
[2020-09-06] MEDS: IBUPROFEN 600 MG TABLET PO ×2 (00:03→08:23)
[2020-09-06 05:10] LABS: Hematocrit 29.1 % (37.0-47.0); Hemoglobin 9.6 g/dL (12.0-15.0); Mean Corpuscular Hemoglobin 29.7 pg (26-34); Mean Corpuscular Volume 90.1 fl (80-100); Mean Platelet Volume 9.4 fl (7.4-10.4); Platelet Count Result 235 k/mm3 (150-375); Red Blood Count 3.23 M/mm3 (4.2-5.4); Red Cell Distribution Width 14.2 % (11.5-14.5); White Blood Count 7.6 K/mm3 (4.5-10.0)
[2020-09-06 07:20] VITALS: BP 140/89; PULSE 91; RESP 16; TEMP 36.3
[2020-09-06] MEDS: MULTIVIT/MIN/PREN/FOL AC/IRON TABLET 1 TAB PO (08:20)
[2020-09-06] MEDS: DOCUSATE SODIUM 100 MG CAPSULE PO (08:20)
[2020-09-06] MEDS: NIFEdipine 30 MG TAB.ER.24 PO (08:21)
[2020-09-06] MEDS: POLYSACCHARIDE IRON COMPLEX 150 MG CAPSULE PO (08:22)
--- NOTE | 2020-09-06 09:30 | P.PNOB_ITS ---
OB - PN: Subj Subjective Date/time seen: 09/06/20 09:30 Patient comments: no complaints and pain well controlled baby status: doing well and nursing well OB - PN: Obj Data Labs CBC & Chem 7: 09/06/20 05:03 Labs: Laboratory Results - last 24 hr 09/05/20 09/06/20 21:13 05:03 WBC 10.2 H 7.6 RBC 3.28 L 3.23 L Hgb 9.7 L 9.6 L Hct 29.4 L 29.1 L MCV 89.6 90.1 MCH 29.6 29.7 MCHC 33.0 33.0 RDW 14.1 14.2 Plt Count 243 235 MPV 9.6 9.4 OB - PN A/P Plan day: 3 Plan: discharge home Comments: unsure control Time Spent With Patient Time: Total time spent is greater than 50% in coordination of care (as do cumented) at patient's floor/unit and/or counseling patient: Exam Narrative: Exam Narrative: inc c/d/i : Bimanual exam- vagina & uterus: other (Uterus firm, nt @U)
[2020-09-07 08:34] VITALS: BP 140/89; PULSE 88; RESP 22; TEMP 36.6; O2SAT 100
--- NOTE | 2020-09-12 09:37 | PM.OBDSVD ---
DS: Admitting Diagnosis Admitting Diagnosis Admitting Diagnosis: scheduled csection DS: Discharge Diagnosis Discharge Diagnosis (1) Contracted pelvis in : Code(s): O33.1 - Maternal care for disproportion due to generally contracted pelvis Status: Acute (2) S/P : Code(s): Z98.891 - History of uterine scar from previous surgery Status: Acute OB - DS: Summary OB Procedures : NST, PIH Mgmt and Ultrasound OB Procedures Intrapartum: OB Procedures: : None Peripartum Data Delivery Method: Section Procedures: Procedures Operation Date: 09/03/20 07:30 Actual Procedures Side Surgeon p Primary Section Apolinar Ridley MD Time Spent with Patient Time attestation: Total time spent providing and/or coordinating discharge services: DS: Data Data Completed and Pending Completed studies during hospitalization: Pending at discharge 09/03/20 08:09 Surgical [PTH] Routine Discharge Plan Discharge Attending physician on discharge: Apolinar Ridley Consulting providers: Richar Carney ; Enmanuel Mendiola Discharging Clinician: Apolinar Ridley Anticipated Discharge Date/Time: 09/06/20 09:30 Patient Disposition: Home, Self-Care Activity: may shower, may drive after 2 weeks and pelvic rest Diet: regular Wound Care Instructions: incision open to air Discharge Instructions: Education: Mom and Baby Guide Given to: Mother Follow-Up: Call your delivering provider's office for an appointment to be seen in: 1 Week Mom and baby should come to the [facility] for the follow-up appointment. Appointment Date/Time: September 07, 2020 at 8:00 am What to expect at your follow-up visit: Blood Pressure Check Physical Assessment Call [phone] if you are unable to keep your appointment time. BREAST CARE: * Wear a snug supportive bra. * For engorgement discomfort: Breast Feeding: * Apply warm moist washcloths * Express milk as needed to relieve engorgement * Wear loose clothing * For sore nipples: * Identify correct latch-on * Apply warm moist washcloths before and after nursing * Air dry nipples after nursing * May apply Lansinoh cream to nipples ABDOMINAL INCISION: (if applicable) * Allow incision to air dry * Do NOT use lotions for powders on your incision * When showering, allow soap and water to run over the incision, but do not wash incision EPISIOTOMY/PERINEAL CARE: * Until bleeding stops, use your patito bottle after urinating * Change your pad frequently throughout the day * No tub baths until seen by your physician - You may shower ACTIVITY: * Rest as much as possible. * Do not exercise or lift anything heavier than your baby (such as laundry or other children.) * Avoid stairs or driving as much as possible. * Do not put anything into the vagina. No douching, tampons, or sexual activity until seen by physician. NOTIFY PHYSICIAN IF YOU HAVE ANY QUESTIONS OR IF ANY OF THE FOLLOWING SYMPTOMS OCCUR: * If your incision becomes red, swollen, or more painful than what you have experienced in the hospital. * If your vaginal bleeding becomes foul smelling. * If your vaginal bleeding becomes more heavy than a period or if your bleeding changes from pink to bright red. However, you may pass an occasional walnut-sized clot once or twice for the first week . * If you experience a sharp, shooting pain in you calves. * If you discover a hard, reddened area on your breast or if you experience flu-like symptoms. * Temperature of 100.4 or higher DIET: * Eat regular, well-balanced meals. * Drink plenty of fluids daily. If , drink to thirst. Stand Alone Forms: General Discharge Information Follow-up/Referrals: Apolinar Ridley MD [Physician] - 1 Week (and 6 wk) Dischar
== END 2020-09-06 12:20 | disposition home or self-care (01) | DRG 788 ==
LOC: ANHOB2 09-06 09:31 → ANHLDR 09-08 10:25 → ANHOB2 09-08 10:25
PROVIDERS: Admitting Provider Obstetrics & Gynecology; Visit Provider Obstetrics & Gynecology Gynecology
PROC: 10D00Z1 Extraction of Products of Conception, Low, Open Approach (ICD-10-PCS; CPT 59514; principal; 2020-09-03 07:30)
DX: O13.4 Gestational [pregnancy-induced] hypertension without significant proteinuria, complicating childbirth (principal); Z37.0 Single live birth; Z3A.39 39 weeks gestation of pregnancy; O36.5930 Maternal care for other known or suspected poor fetal growth, third trimester, not applicable or unspecified; Q77.4 Achondroplasia; O99.892 Other specified diseases and conditions complicating childbirth; D25.9 Leiomyoma of uterus, unspecified; O33.1 Maternal care for disproportion due to generally contracted pelvis; Z86.16 Personal history of COVID-19; Z87.01 Personal history of pneumonia (recurrent)
CPT/HCPCS: 36415; 59025; 85025; 85027; 86592; 86850; 86900; 86901; 88307; 93005; A9270; J0131; J0690; J1200; J1885; J2270; J2274; J2405; J2590; J7120

== ENCOUNTER 2021-01-09 11:41 | Emergency (ER) | payer BC, SELFPAY ==
[2021-01-09 11:46] VITALS: BP 143/99; PULSE 75; RESP 16; TEMP 36.9; O2SAT 100
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
== END 2021-01-09 12:22 | disposition home or self-care (01) ==
PROVIDERS: Emergency Provider Nurse Practitioner
DX: S61.212A Laceration without foreign body of right middle finger without damage to nail, initial encounter (principal); W25.XXXA Contact with sharp glass, initial encounter
CPT/HCPCS: 99212; G0463

== ENCOUNTER 2021-07-10 09:28 | Emergency (ER) | payer OTHER, SELFPAY ==
[2021-07-10 09:45] VITALS: BP 149/113; PULSE 121; RESP 16; TEMP 37.1; O2SAT 99
--- NOTE | 2021-07-10 09:51 | ED.GENADULT ---
HPI - General Adult General Chief complaint: Upper Respiratory Infection Stated complaint: sorethroat Source: patient Mode of arrival: ambulatory Limitations: no limitations History of Present Illness HPI narrative: Patient presents for evaluation of sore throat for the last 3 days. No fever, chills, nausea, vomiting, cough, shortness of breath, loss of sense of taste or smell. Her son recently had a cold. No other sick contacts to her knowledge. She had Covid in July 2020. She has not received vaccination for Covid. She does not smoke. She has been taking mucinex and tylenol with some improvement in her symptoms thereafter. Related Data Home Medications Medication Instructions Recorded Confirmed alprazolam 0.25 mg PO TID PRN 07/10/21 07/10/21 escitalopram oxalate 10 mg PO DAILY 07/10/21 07/10/21 Allergies Allergy/AdvReac Type Severity Reaction Status Date / Time No Known Allergies Allergy Verified 07/10/21 09:42 Review of Systems Review of Systems: CONSTITUTIONAL: Denies fever, chills, or sweats. EYES: Denies visual changes, redness, or discharge. ENT: Reports sore throat. Denies rhinorrhea, congestion, or otalgia. CARDIOVASCULAR: Denies chest pain, palpitations, or edema. RESPIRATORY: Denies cough or dyspnea. GASTROINTESTINAL: Denies abdominal pain, nausea, vomiting, or diarrhea. GENITOURINARY: Denies dysuria or hematuria. SKIN: Denies rash or itching. MUSCULOSKELETAL: Denies back pain, joint pain, or myalgia. NEUROLOGIC: Denies headache, numbness, dizziness, or weakness. PSYCHIATRIC: Denies anxiety or depression. [facility] Past Medical History Medical History Achondroplasia Contracted pelvis in Fall PIH ( induced hypertension) contractions Surgical History Surgical History S/P Family History Family History Mother Breast cancer Social History Social History Smoking status: Never smoker Substance use: never Gender identity (if verbalized by the patient): Female Spiritual care concerns: No Exam Narrative: GENERAL: Well-appearing, well-nourished, and in no acute distress. HEAD: Normocephalic, atraumatic. EYES: PERRLA and EOMI. ENT: Nares clear, no rhinorrhea or epistaxis. Mucous membranes moist. Oropharynx without tonsillar hypertrophy or other lesions. There is small amount of white exudate. Uvula midline. Halitosis present. Bilateral TMs pearly hendricks nonbulging NECK: Supple. No adenopathy or masses. No carotid bruits or JVD CHEST: Clear to auscultation. No respiratory distress. No wheezes rales or rhonchi HEART: Regular rate and rhythm. No murmur heard. Normal peripheral pulses. ABDOMEN: Soft, nontender, nondistended, normal active bowel sounds. EXTREMITIES: Normal range of motion. No edema. SKIN: Warm, dry, no rash. NEURO: No focal deficits. Alert and oriented x3. PSYCH: Normal mood and affect. Course Course Emergency Course: This is a 31-year-old female who presents with 3-day history of sore throat. Rapid strep was negative. She does have a small amount of white exudate in her posterior pharynx. Will treat with penicillin. She should follow-up outpatient for further evaluation and treatment and return for worsening symptoms. Patient agreed with plan of care. Level of Care: Express Care Visit Vital Signs Vital signs: Vital Signs Temperature 37.1 C 07/10/21 09:45 Pulse Rate 121 H 07/10/21 09:45 Respiratory Rate 16 07/10/21 09:45 Blood Pressure 149/113 H 07/10/21 09:45 Pulse Oximetry 99 07/10/21 09:45 Temperature 37.1 C 07/10/21 09:45 Pulse Rate 121 H 07/10/21 09:45 Respiratory Rate 16 07/10/21 09:45 Blood Pressure 149/113 H 07/10/21 09:45 Pulse Oximetry 99
== END 2021-07-10 10:02 | disposition home or self-care (01) ==
PROVIDERS: Emergency Provider Nurse Practitioner
DX: J02.9 Acute pharyngitis, unspecified (principal)
CPT/HCPCS: 87081; 87880; 99213; G0463

== ENCOUNTER 2022-02-16 12:26 | Emergency (ER) | payer OTHER, SELFPAY ==
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
[2022-02-16 12:50] VITALS: BP 159/115; PULSE 95; RESP 18; TEMP 37; O2SAT 97
[2022-02-16 13:33] VITALS: BP 169/112; PULSE 97; RESP 14; O2SAT 100
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
[2022-02-16] MEDS: KETOROLAC (*BKC) 60 MG/2 ML VIAL IM (14:10)
== END 2022-02-16 14:20 | disposition home or self-care (01) ==
PROVIDERS: Emergency Provider Nurse Practitioner Family
DX: R07.89 Other chest pain (principal); S60.212A Contusion of left wrist, initial encounter; S60.211A Contusion of right wrist, initial encounter; V89.2XXA Person injured in unspecified motor-vehicle accident, traffic, initial encounter
CPT/HCPCS: 71046; 73110; 96372; 99284; J1885